=== PATIENT | male | born 1945 | race Caucasian/White ===

== ENCOUNTER 2020-02-26 14:52 | Inpatient (IN) | payer MEDICARE, SELFPAY ==
[~2020-02-26] VITALS: Ht 162.6 cm; Wt 77.1 kg
[2020-02-26 14:54] VITALS: BP 98/78
--- NOTE | 2020-02-26 14:55 | NUR ---
navdeep called to bedside for bradycardia of 24 bpm
--- NOTE | 2020-02-26 15:00 | NUR ---
74 YO M BIBA FROM HOME FOR C/C OF DIZZINESS X 1 DAY. PT PRESENTS BRADYCARDIC IN THE 20'S-30'S HR. CAP REFILL >3. NO EDEMA NOTED. S1S2 HEARD. LUNG SOUNDS CLEAR THROUGHOUT. PT DENIES C/P, STATES HE WAS FEELING NAUSEA WITH NO VOMITING. DENIES CARDIAC PROBLEMS. PT PLACED ON LASER BEAM MACHINE OPERATOR/PULSE OX. BED LOCKED AND IN LOWEST POSITION. SIDE RAILS X2. MED HX: COLON CANCER 3 YEARS AGO, DM2, GERD NKA Addendum: 02/26/20 at 1745 by [email or web address] 74 YO M BIBA FROM HOME FOR C/C OF DIZZINESS X 1 DAY. PT PRESENTS BRADYCARDIC IN THE 20'S-30'S HR, A&O X4. CAP REFILL >3. NO EDEMA NOTED. S1S2 HEARD. LUNG SOUNDS CLEAR THROUGHOUT. PT DENIES C/P, STATES HE WAS FEELING NAUSEA WITH NO VOMITING. DENIES CARDIAC PROBLEMS. PT PLACED ON LASER BEAM MACHINE OPERATOR/PULSE OX. BED LOCKED AND IN LOWEST POSITION. SIDE RAILS X2. MED HX: COLON CANCER 3 YEARS AGO, DM2, GERD NKA
--- NOTE | 2020-02-26 15:10 | NUR ---
ERMD PERFORMING ULTRASOUND GUIDED IV AT BEDSIDE, RAC 20G OBTAINED
--- NOTE | 2020-02-26 15:15 | NUR ---
PT PLACED ON DEFIBRILLATOR OF MONITORING IN EVENT THAT PT NEEDS PACING PER ERMD REQUEST
[2020-02-26] MEDS ORDERED: DOPamine 400 MG/D5W PREMIX 250 ML IV ONE ×2 (15:20→18:05)
[2020-02-26] MEDS ORDERED: NACL 0.9% 1,000 ML IV ONE ×2 (15:20→19:35)
[2020-02-26 15:21] LABS: BASOPHILS # (AUTO) 0.1 K/uL (0.00-0.22); BASOPHILS % (AUTO) 0.6 % (0.0-2.0); EOSINOPHILS # (AUTO) 0.1 K/uL (0-0.4); EOSINOPHILS % (AUTO) 0.6 % (0.0-4.0); HEMATOCRIT 33.1 % (36-52); HEMOGLOBIN 10.1 g/dL (12.0-18.0); LYMPHOCYTES # (AUTO) 2.2 K/uL (2.0-11.5); LYMPHOCYTES % (AUTO) 23.4 % (20.5-51.1); MEAN CORPUSCULAR HEMOGLOBIN 22 pg (27-31); MEAN CORPUSCULAR HGB CONC 30 g/dL (33-37); MEAN CORPUSCULAR VOLUME 72.4 fL (80-94); MONOCYTES # (AUTO) 0.4 K/uL (0.8-1.0); MONOCYTES % (AUTO) 4.5 % (1.7-9.3); NEUTROPHILS # (AUTO) 6.6 K/uL (1.8-7.7); NEUTROPHILS % (AUTO) 70.9 % (42.2-75.2); PLATELET COUNT (AUTO) 186 K/uL (140-450); RED BLOOD CELL COUNT(AUTO) 4.57 MIL/uL (4.20-6.10); RED CELL DISTRIBUTION WIDTH 15.7 % (11.6-13.7); WHITE BLOOD COUNT (AUTO) 9.4 K/uL (4.8-10.8)
--- NOTE | 2020-02-26 15:25 | NUR ---
DOPAMINE TRANSFUSION STARTED, SEE SPREADSHEET
--- NOTE | 2020-02-26 15:38 | NUR ---
UNABLE TO EDIT IV SPREADSHEET, DELETE 1538 COLUMN
[2020-02-26 15:42] LABS: ALBUMIN 3.7 g/dL (3.4-5.0); ASPARTATE AMINOTRANSFERASE 80 U/L (15-37); CARBON DIOXIDE 22.6 mmol/L (21-32); CHLORIDE 99 mmol/L (98-107); CREATININE 2.5 mg/dL (0.6-1.3); SODIUM SERUM 129 mmol/L (136-145); TOTAL BILIRUBIN 0.6 mg/dL (0.0-1.0); UREA NITROGEN, BLOOD 39 mg/dL (7-18)
[2020-02-26 15:47] LABS: MAGNESIUM 2.3 mg/dL (1.8-2.4)
[2020-02-26 15:51] LABS: GLUCOSE 402 mg/dL (74-106); POTASSIUM 7.6 mmol/L (3.5-5.1)
--- NOTE | 2020-02-26 15:58 | NUR ---
RAD AT BEDSIDE
[2020-02-26] MEDS ORDERED: CALCIUM GLUCONATE 10% 1000 MG/10 ML VIAL IVP ONE ×2 (16:00→21:40)
[2020-02-26] MEDS ORDERED: SODIUM BICARBONATE 8.4% PFS 50 MEQ/50 ML SYR IVP ONE ×2 (16:00→21:40)
[2020-02-26] MEDS ORDERED: DEXTROSE 50% 50 ML SYR IVP ONE ×2 (16:00→21:40)
[2020-02-26] MEDS ORDERED: SODIUM ZIRCONIUM CYCLOSILICATE 10 GM POWD.PACK PO ONE ×2 (16:00→19:35)
[2020-02-26] MEDS ORDERED: ALBUTEROL 0.083% 2.5 MG/3 ML NEBU INH ONE ×2 (16:00→21:40)
[2020-02-26] MEDS ORDERED: INSULIN REGULAR, HUMAN 100 UNIT/ML VIAL IVP ONE ×2 (16:00→21:40)
--- NOTE | 2020-02-26 16:00 | NUR ---
RT AT BEDSIDE FOR ALBUTEROL INH
--- NOTE | 2020-02-26 16:35 | NUR ---
PT HAD ONE EPISODE OF VOMITING, ERMD MADE AWARE.
[2020-02-26] MEDS ORDERED: ONDANSETRON 4 MG/2 ML VIAL ONE (16:41)
[2020-02-26] MEDS ORDERED: ONDANSETRON 4 MG/2 ML VIAL IVP ONE (17:10)
--- NOTE | 2020-02-26 17:18 | NUR ---
ATTEMPTED TO CALL TO OBTAIN MED REC, NO ANSWER. LEFT VOICEMAIL.
--- NOTE | 2020-02-26 17:19 | NUR ---
IMMANUEL SWAB COLLECTED, WALKED TO LAB AND LEFT WITH SHANE MCLEAN
[2020-02-26] MEDS ORDERED: GLIP5TER PO (17:27)
[2020-02-26] MEDS ORDERED: LISI2.5T12 PO (17:29)
[2020-02-26] MEDS ORDERED: METF500T PO (17:30)
--- NOTE | 2020-02-26 17:30 | NUR ---
SPOKE WITH PTS , UPDATED ON PLAN OF CARE AND OBTAINED MED REC
[2020-02-26] MEDS ORDERED: MONT10TA35 PO (17:31)
--- NOTE | 2020-02-26 17:57 | NUR ---
CALLED LAB TO CHECK ON STATUS OF IMMANUEL SWAB, STATES THEY WILL MAKE SURE IT IS PROCESSED.
--- NOTE | 2020-02-26 18:14 | NUR ---
PT ASLEEP IN BED. EQUAL CHEST RISE AND FALL, VISCOSITY TESTER/PULSE OX IN PLACE. BED LOCKED AND IN LOWEST POSITION. SIDE RAILS X2.
[2020-02-26] MEDS ORDERED: POTASSIUM CHLORIDE 10 MEQ TABER PO PRN (18:25)
[2020-02-26] MEDS ORDERED: DOCUSATE SODIUM 100 MG GELCAP PO PRN (18:25)
[2020-02-26] MEDS ORDERED: ONDANSETRON 4 MG/2 ML VIAL IM/IVP PRN (18:25)
[2020-02-26] MEDS ORDERED: HYDROcodone/APAP 7.5/325 MG 1 TAB PO PRN (18:25)
[2020-02-26] MEDS ORDERED: DEXTROSE 50% 50 ML SYR IVP PRN (18:30)
[2020-02-26] MEDS: NACL 0.9% 1,000 ML IV SCH (18:36)
[2020-02-26] MEDS: DOPamine 400 MG/D5W PREMIX 250 ML IV PRN ×2 (18:45→23:30)
--- NOTE | 2020-02-26 18:45 | NUR ---
STARTED NEW IV SPREADSHEET FOR NEW ADMIT ORDER OF DOPAMINE, CONTINUED AT 20MCG/KG/MIN.
--- NOTE | 2020-02-26 18:52 | NUR ---
MRSA SWAB COLLECTED AND WALKED TO LAB
[2020-02-26 19:00] LABS: PROTHROMBIN TIME 10.6 secs (10.8-13.4)
--- NOTE | 2020-02-26 19:16 | NUR ---
REPORT GIVEN TO SELAM BROOKS. TRANSFER OF CARE AT THIS TIME.
--- NOTE | 2020-02-26 19:16 | NUR ---
REPORT RECEIVED FROM TEVIN DOSS FOR CONTINUITY OF CARE
[2020-02-26 19:17] LABS: ALBUMIN 3.7 g/dL (3.4-5.0); AMYLASE 139 U/L (25-115); ANION GAP 19.6 (8-16); ASPARTATE AMINOTRANSFERASE 81 U/L (15-37); CHLORIDE 98 mmol/L (98-107); CHOL/HDL RATIO 2.9 (1-4.5); CREATININE 2.6 mg/dL (0.6-1.3); FREE T4 (FREE THYROXINE) 1.41 ng/dL (0.76-1.46); HDL CHOLESTEROL 53 mg/dL (40-60); LDL (CALC) 62 mg/dL (60-100); LIPASE 459 U/L (73-393); PHOSPHORUS 4.5 mg/dL (2.5-4.9); SODIUM SERUM 129 mmol/L (136-145); THYROID STIMULATING HORMONE 2.15 uIU/mL (0.34-3.74); TOTAL BILIRUBIN 0.6 mg/dL (0.0-1.0); TRIGLYCERIDES 195 mg/dL (30-150); UREA NITROGEN, BLOOD 41 mg/dL (7-18)
[2020-02-26 19:23] LABS: POTASSIUM 7.6 mmol/L (3.5-5.1)
[2020-02-26 19:24] LABS: GLUCOSE 405 mg/dL (74-106)
[2020-02-26] MEDS ORDERED: SODIUM ZIRCONIUM CYCLOSILICATE 10 GM POWD.PACK ONE (19:36)
[2020-02-26] MEDS: INSULIN LISPRO SLIDING SCALE 100 UNITS/ML VIAL SUBQ PRN (20:26)
[2020-02-26] MEDS: BLOOD GLUCOSE MONITORING 1 DEV DEV FS SCH (20:27)
--- NOTE | 2020-02-26 21:45 | NUR ---
PT HAD EPISODE OF BRADYCARDIA HR 38. NOTIFIED DR REYNA, ORDERS RECEIVED. NOTIFIED DR ROBERSON.
--- NOTE | 2020-02-26 22:00 | NUR ---
DOPAMINE DRIP INCREASED TO 25 MCG/KG/MIN. HEART RATE NOW 76. WILL CONTINUE TO MONITOR.
--- NOTE | 2020-02-26 22:00 | NUR ---
RT AT BEDSIDE ADM BREATHING TX
--- NOTE | 2020-02-26 23:41 | NUR ---
LAB AT BEDSIDE
[2020-02-26 23:55] LABS: APPEARANCE,URINE CLEAR (CLEAR); BILIRUBIN,URINE NEGATIVE (NEGATIVE); BLOOD, URINE NEGATIVE (NEGATIVE); COLOR,URINE YELLOW (YELLOW); LEUKOCYTE ESTERASE ,URINE NEGATIVE (NEGATIVE); NITRITE, URINE NEGATIVE (NEGATIVE); PH,URINE 5.5 (5.0-9.0); UGLUCOSE 2+ (NEGATIVE)
[2020-02-27] VITALS (8 sets, daily range): BP systolic 123–155; BP diastolic 55–80
[2020-02-27 00:09] LABS: BARBITURATE, URINE NEGATIVE ng/ml (NEG <=200); BENZODIAZEPINE, URINE NEGATIVE ng/mL (NEG <=200); CANNABINOID, URINE NEGATIVE ng/mL (NEG <=50); COCAINE, URINE NEGATIVE ng/mL (NEG <=300); OPIATE, URINE NEGATIVE ng/mL (NEG <=2000); PHENCYCLIDINE SCREEN,URINE NEGATIVE ng/mL (NEG <=25)
--- NOTE | 2020-02-27 01:06 | NUR ---
PT ON DOPAMINE DRIP, HEART 74. NASAL CANNULA 5L O2 SATURATION 92%. WILL CONTINUE TO MONITOR.
--- NOTE | 2020-02-27 02:30 | NUR ---
ON NC 5L, 88% O2 SATURATION. PT PLACED ON NON REBREATHER 15L. O2 SATURATION NOW AT 98%. WILL CONTINUE TO MONITOR.
[2020-02-27] MEDS: DOPamine 400 MG/D5W PREMIX 250 ML IV PRN ×2 (03:01→06:05)
--- NOTE | 2020-02-27 04:24 | NUR ---
PT AWAKE, RESPIRATIONS EVEN AND UNLABORED. CHEST RISE IS SYMMETRICALL. WILL CONTINUE TO MONITOR
--- NOTE | 2020-02-27 06:14 | NUR ---
PT HAS EYES CLOSED, RESTING IN BED RESPIRATIONS EVEN AND UNLABORED. CHEST RISE IS SYMMETRICALL. WILL CONTINUE TO MONITOR
--- NOTE | 2020-02-27 07:15 | NUR ---
REPORT GIVEN TO TEVIN DOSS AND TEX RN FOR CONTINUITY OF CARE
--- NOTE | 2020-02-27 07:16 | NUR ---
REPORT RECEIVED FROM SELAM BROOKS
[2020-02-27] MEDS: BLOOD GLUCOSE MONITORING 1 DEV DEV FS SCH ×4 (07:36→21:05)
[2020-02-27] MEDS: INSULIN LISPRO SLIDING SCALE 100 UNITS/ML VIAL SUBQ PRN ×2 (07:40→11:49)
--- NOTE | 2020-02-27 07:42 | NUR ---
PT CHANGED INTO CLEAN GOWN, NEW LINENS PROVIDED, LEGISLATORS/PULSE OX IN PLACE. BED LOCKED AND IN LOWEST POSITION. SIDE RAILS X1. PT STATES HE HAS A CHO AND WOULD LIKE SOMETHING FOR PAIN. PRN TYLENOL PROVIDED.
--- NOTE | 2020-02-27 08:27 | NUR ---
DR. ROBERSON AT BEDSIDE
[2020-02-27 08:28] LABS: BASOPHILS % (AUTO) 0.2 % (0.0-2.0); HEMATOCRIT 38.2 % (36-52); HEMOGLOBIN 11.8 g/dL (12.0-18.0); LYMPHOCYTES # (AUTO) 1.5 K/uL (2.0-11.5); LYMPHOCYTES % (AUTO) 10.3 % (20.5-51.1); MEAN CORPUSCULAR HEMOGLOBIN 22 pg (27-31); MEAN CORPUSCULAR HGB CONC 31 g/dL (33-37); MEAN CORPUSCULAR VOLUME 71.7 fL (80-94); MONOCYTES # (AUTO) 1.2 K/uL (0.8-1.0); MONOCYTES % (AUTO) 8.1 % (1.7-9.3); NEUTROPHILS # (AUTO) 11.6 K/uL (1.8-7.7); NEUTROPHILS % (AUTO) 81.4 % (42.2-75.2); PLATELET COUNT (AUTO) 257 K/uL (140-450); RED BLOOD CELL COUNT(AUTO) 5.33 MIL/uL (4.20-6.10); RED CELL DISTRIBUTION WIDTH 15.5 % (11.6-13.7); WHITE BLOOD COUNT (AUTO) 14.2 K/uL (4.8-10.8)
--- NOTE | 2020-02-27 08:30 | NUR ---
PT PROVIDED WITH BREAKFAST TRAY
[2020-02-27 08:57] LABS: ANION GAP 16.1 (8-16); CARBON DIOXIDE 22.6 mmol/L (21-32); CHLORIDE 104 mmol/L (98-107); CREATININE 2.2 mg/dL (0.6-1.3); GLUCOSE 277 mg/dL (74-106); SODIUM SERUM 137 mmol/L (136-145); UREA NITROGEN, BLOOD 38 mg/dL (7-18)
[2020-02-27] MEDS ORDERED: metFORMIN 500 MG TAB PO SCH (09:00)
[2020-02-27] MEDS ORDERED: lisinopriL 5 MG TAB PO SCH (09:00)
[2020-02-27 09:24] LABS: POTASSIUM 5.7 mmol/L (3.5-5.1)
[2020-02-27] MEDS: PANTOPRAZOLE 40 MG TABEC PO SCH (09:25)
[2020-02-27] MEDS: glipiZIDE ER 5 MG TABER PO SCH (09:25)
[2020-02-27] MEDS: MONTELUKAST SODIUM 10 MG TAB PO SCH (09:26)
[2020-02-27] MEDS: ACETAMINOPHEN 325 MG TAB PO PRN ×2 (10:08→21:06)
[2020-02-27] MEDS ORDERED: hydrALAZINE 20 MG/ML VIAL IVP PRN (10:30)
--- NOTE | 2020-02-27 10:52 | NUR ---
PT AT BEDSIDE FOR PT EVAL
[2020-02-27] MEDS: NACL 0.9% 1,000 ML IV SCH (11:25)
--- NOTE | 2020-02-27 11:50 | NUR ---
PT EXPERIENCING NAUSEA, PRN ZOFRAN PROVIDED
--- NOTE | 2020-02-27 12:26 | NUR ---
PT PROVIDED WITH LUNCH TRAY
--- NOTE | 2020-02-27 12:33 | NUR ---
SOCIAL WORK NOTE: Patient's Orientation Unable To Assess Information Provided By AMAN MIRANDA - Comments SW WAS UNABLE TO MEET PATIENT AT BEDSIDE TO COMPLETE ASSESSMENT. SW CONTACTED TO COMPLETE ASSESSMENT. Nurse Orthopaedic, Realtionship and Phone Number AMAN ORTEGA [phone] Healthcare Power of Director Software Development No Does Patient Have a POLST No Identifying Problems No Social Work Triggers Is A Social Work Consult Needed No Mandate Report Filed No Explanation Of Identifying Problems PATIENT IS A 74-YEAR OLD MALE ADMITTED FOR BRADYCARDIA AND HYPERKALEMIA. PATIENT HAS PMHX OF DM, HTN, ASTHMA, AND COLON CANCER. Admitted From Home Pre-Admission Level Of Functioning Status Independent/Ambulatory Prior Resources/Services Used In Last 12 Months No Prior Resources Used Prior DME No Prior DME Used Dialysis Comments N/A Living Situation House Lives With Spouse Patient Had Caregiver No Home Support No Caregiver Issues Financial Issues No Known Financial Issue Referral To The Financial Counselor Needed No Factors/Needs No D/C Needs Identified Pt/Rep Participated In Discharge Plan Yes Patient/Family Agress With Discharge Plan Yes Discharge Plan Comments TENTATIVE DISCHARGE PLAN IS FOR PATIENT TO RETURN HOME. DC Plan Status Initiated
--- NOTE | 2020-02-27 14:45 | NUR ---
PT ASLEEP IN BED , EQUAL CHEST RISE AND FALL, BED LOCKED AND IN LOWEST POSITION. SIDE RAILS X1. TERRITORY MANAGER GENERAL SALES/PULSE OX IN PLACE. CALL LIGHT IN REACH.
--- NOTE | 2020-02-27 16:45 | NUR ---
PT ASLEEP IN BED , EQUAL CHEST RISE AND FALL, BED LOCKED AND IN LOWEST POSITION. SIDE RAILS X1. DONATIONS ATTENDANT/PULSE OX IN PLACE. CALL LIGHT IN REACH.
--- NOTE | 2020-02-27 17:55 | NUR ---
Patient will be admitted to care of DR. ROBERSON. Admited to ICU. Will go to room 5. Belongings list completed. Report to SELAM DENIS.
--- NOTE | 2020-02-27 21:33 | NUR ---
[facility]. PATIENT ALERT AND ORIENTED X4, PERSON, PLACE, TIME AND EVENT. PATIENT ON NASAL CANULA AT 3, TOLERATING WELL. PATIENT LYING IN BED AT HOB 30 DEGREES, COMFORTABLY AND CALMLY. IV ACCESS SITES INCLUDE RIGHT EJ SALINE LOCK AND PORTICATH RIGHT CHEST WALL, DAYSHIFT NURSE SAID TO NOT ACCESS PORTICATH AT THIS TIME. MALE URINAL AT BEDSIDE, ABLE TO USE INDEPENDENTLY WITH OCCASIONAL ASSISTANCE. PATIENT ON CARDIAC DIET, SKINS INTACT. PATIENT IN POSITION OF COMFORT, ABLE TO TURN IN BED WITH ASSISTANCE. PATIENT OFFLOADED FROM PRESSURE. CONTINUOUS TELE MONITORING, FREQUENT ROUNDING AND CLOSE MONITORING IN PLACE. Addendum: 02/28/20 at 0631 by Spenser Rapp RN RN @ [phone]
--- NOTE | 2020-02-27 23:00 | NUR ---
FREQUENT ROUNDING AND MONITORING, PATIENT TOLERATING NASAL CANNULA @ 3L WELL, LYING DOWN IN THE BED CALM, CONTENT AND TRYING TO REST. WILL CONTINUE TO MONITOR.
[2020-02-28] VITALS (27 sets, daily range): BP systolic 91–173; BP diastolic 48–95
[2020-02-28] MEDS: DOPamine 400 MG/D5W PREMIX 250 ML IV PRN ×2 (00:58→09:51)
--- NOTE | 2020-02-28 01:00 | NUR ---
PATIENT SLEEPING, NO COMPLAINTS OF PAIN OR DISCOMFORT, RESTING COMFORTABLY. FREQUENT ROUNDING AND MONITORING PROVIDED.
--- NOTE | 2020-02-28 03:00 | NUR ---
HYGIENE, BED BATH, SHAMPOO CAP PROVIDED. LINENS CHANGED, PATIENT ASSISTED, CONTINUE TO MONITOR AND FREQUENTLY ROUND. CONTINUOUS TELE MONITORING, NORMAL SINUS.
[2020-02-28] MEDS: NACL 0.9% 1,000 ML IV SCH (03:37)
--- NOTE | 2020-02-28 05:00 | NUR ---
PATIENT CONTINUING TO REST COMFORTABLY AND CALMLY IN THE BED, CONTINUING TO ROUND AND MONITOR, PATIENT CONTINUING TO TOLERATE NASAL CANULA 3L WELL.
--- NOTE | 2020-02-28 06:56 | NUR ---
PATIENT HAS BEEN SCREENED AND CATEGORIZED HIGH NUTRITION RISK. PATIENT WILL BE SEEN WITHIN 1-2 DAYS OF ADMISSION. 02/28/20-02/29/20 ADAM CHAMPAGNE MS, RDN
[2020-02-28] MEDS ORDERED: NACL 0.9% 1,000 ML IV SCH (07:30)
[2020-02-28] MEDS: BLOOD GLUCOSE MONITORING 1 DEV DEV FS SCH ×4 (07:30→21:00)
[2020-02-28 08:07] LABS: T4 (THYROXINE) 5.3 ug/dL (4.5-12.0)
[2020-02-28] MEDS: INSULIN LISPRO SLIDING SCALE 100 UNITS/ML VIAL SUBQ PRN (08:49)
[2020-02-28] MEDS: PANTOPRAZOLE 40 MG TABEC PO SCH (09:29)
[2020-02-28] MEDS: glipiZIDE ER 5 MG TABER PO SCH (09:29)
[2020-02-28] MEDS: MONTELUKAST SODIUM 10 MG TAB PO SCH (09:30)
[2020-02-28] MEDS: ACETAMINOPHEN 325 MG TAB PO PRN (09:55)
--- NOTE | 2020-02-28 11:54 | NUR ---
(02/28/20) RD INITIAL ASSESSMENT COMPLETED PLEASE REFER TO NUTRITION ASSESSMENT UNDER CARE ACTIVITY FOR ESTIMATED NUTRITIONAL NEEDS. RD RECOMMENDATIONS: 1. CONTINUE CARDIAC DIET TOLERATED. 2. RECOMMEND ADDING CCHO 60 GM DIET RESTRICTION TO CURRENT DIET ORDER. 3. RD WILL F/U 3-5 DAYS; MODERATE RISK. ADAM CHAMPAGNE MS, RDN
--- NOTE | 2020-02-28 18:06 | NUR ---
PT REFUSE TO HAVE CBC DRAW AT THIS TIME.
[2020-02-28 18:22] LABS: CARBON DIOXIDE 19.1 mmol/L (21-32); CHLORIDE 105 mmol/L (98-107); CREATININE 1.2 mg/dL (0.6-1.3); GLUCOSE 236 mg/dL (74-106); POTASSIUM 4.1 mmol/L (3.5-5.1); SODIUM SERUM 138 mmol/L (136-145); UREA NITROGEN, BLOOD 24 mg/dL (7-18)
[2020-02-29] VITALS (12 sets, daily range): BP systolic 89–129; BP diastolic 42–64
--- NOTE | 2020-02-29 07:25 | NUR ---
RECEIVED REPORT FROM PERSONNEL ADVISER. AOX4, ON ROOM AIR. NO C/O PAIN, NO SOB, NO APPARENT DISTRESS. WITH C/O GEN WEAKNESS. REJ 18G INFUSING NS AT 60CC/HR. SKIN WARM AND DRY, INTACT. CONTINENT B/B. CALL LIGHT WITHIN REACH. WILL CONTINUE TO MONITOR.
[2020-02-29] MEDS: BLOOD GLUCOSE MONITORING 1 DEV DEV FS SCH ×4 (07:30→20:38)
[2020-02-29] MEDS: MONTELUKAST SODIUM 10 MG TAB PO SCH (08:25)
[2020-02-29] MEDS: PANTOPRAZOLE 40 MG TABEC PO SCH (08:25)
[2020-02-29] MEDS: glipiZIDE ER 5 MG TABER PO SCH (08:25)
--- NOTE | 2020-02-29 08:50 | NUR ---
DUE MORNING MEDS GIVEN. TOLERATED PO MEDS WELL
--- NOTE | 2020-02-29 12:10 | NUR ---
ORDER TO TRANSFER TO TELE NOTED. ASSISTANT COUNTY ENGINEER NOTIFIED
[2020-02-29 12:47] LABS: BASOPHILS # (AUTO) 0.1 K/uL (0.00-0.22); BASOPHILS % (AUTO) 0.7 % (0.0-2.0); EOSINOPHILS % (AUTO) 0.3 % (0.0-4.0); HEMATOCRIT 28.8 % (36-52); HEMOGLOBIN 9.2 g/dL (12.0-18.0); LYMPHOCYTES # (AUTO) 1.2 K/uL (2.0-11.5); MEAN CORPUSCULAR HEMOGLOBIN 22 pg (27-31); MEAN CORPUSCULAR HGB CONC 32 g/dL (33-37); MEAN CORPUSCULAR VOLUME 70.2 fL (80-94); MONOCYTES # (AUTO) 0.7 K/uL (0.8-1.0); NEUTROPHILS # (AUTO) 6.3 K/uL (1.8-7.7); PLATELET COUNT (AUTO) 160 K/uL (140-450); RED CELL DISTRIBUTION WIDTH 14.9 % (11.6-13.7); WHITE BLOOD COUNT (AUTO) 8.2 K/uL (4.8-10.8)
[2020-02-29 13:05] LABS: ANION GAP 12.8 (8-16); CARBON DIOXIDE 22.8 mmol/L (21-32); CHLORIDE 105 mmol/L (98-107); CREATININE 1.7 mg/dL (0.6-1.3); GLUCOSE 134 mg/dL (74-106); POTASSIUM 3.6 mmol/L (3.5-5.1); SODIUM SERUM 137 mmol/L (136-145); UREA NITROGEN, BLOOD 28 mg/dL (7-18)
--- NOTE | 2020-02-29 16:38 | NUR ---
BLOOD SUGAR 136. NO COVERAGE NEEDED
--- NOTE | 2020-02-29 17:59 | NUR ---
TRANSFERRED PT TO TELE FLOOR ROOM 124A REPORT GIVEN TO JOE DOSS
--- NOTE | 2020-02-29 18:00 | NUR ---
RECEIVED PATIENT FROM ICU FOR CONTINUITY OF CARE. PATIENT ARRIVED IN WHEELCHAIR, AWAKE, ALERT, AND ORIENTED. RESP EVEN AND UNLABORED ON ROOM AIR. DENIED OF PAIN AT THIS TIME. NO NOTED ACUTE S/S DISTRESS. REJ 18G NOTED INTACT AND PATENT, SL. RIGHT UPPER PORTACATH NOTED SUBCUTANEOUS. SKIN WARM TO TOUCH AND INTACT. PATIENT ABLE TO FOLLOW COMMAND AND MAKE NEEDS KNOWN. CALL LIGHT WITHIN REACH. WILL CONTINUE TO MONITOR.
--- NOTE | 2020-02-29 19:45 | NUR ---
ENDORSED PATIENT TO NIGHT NURSE. PATIENT IN STABLE CONDITION.
--- NOTE | 2020-02-29 20:10 | NUR ---
RECEIVED REPORT FROM CHARGE NURSE. PT IN BED RESTING, AAOX4, ABLE TO MAKE NEEDS KNOWN. RESPIRATIONS EVEN AND UNLABORED TO ROOM AIR. ABDOMEN IS SOFT AND NON-TENDER, ACTIVE BOWEL SOUNDS NOTED. SKIN IS WARM, DRY, AND INTACT. PT WITH IV ACCESS ON RIGHT EJ G18 PATENT AND INTACT, SALINE LOCKED. PT ALSO WITH RIGHT UPPER CHEST PORT-A-CATH IN PLACE. PT DENIES ANY PAIN OR DISCOMFORT AT THIS TIME. NO REQUESTS MADE. SAFETY MEASURES IN PLACE. CALL LIGHT WITHIN REACH. WILL CONTINUE TO MONITOR.
--- NOTE | 2020-02-29 20:38 | NUR ---
VS STABLE. BLOOD SUGAR 133, NO INSULIN COVERAGE NEEDED. PT DENIES ANY PAIN OR DISCOMFORT. NO REQUESTS MADE. SAFETY MEASURES IN PLACE. CALL LIGHT WITHIN REACH. WILL CONTINUE TO MONITOR.+
[2020-02-29] MEDS: ZOLPIDEM 5 MG TAB PO PRN (21:19)
--- NOTE | 2020-02-29 21:19 | NUR ---
PT VERBALIZED HAVING DIFFICULTY FALLING ASLEEP. PRN AMBIEN GIVEN. WARM FACE TOWEL PROVIDED REQUESTED. PT KEPT COMFORTABLE. CALL LIGHT WITHIN REACH. WILL CONTINUE TO MONITOR.
--- NOTE | 2020-02-29 23:57 | NUR ---
VS STABLE. PT IN BED RESTING. NO S/SX OF DISTRESS NOTED. PT DENIES ANY PAIN OR DISCOMFORT. NO REQUESTS MADE. WILL CONTINUE TO MONITOR.
[2020-03-01] VITALS: BP 119/63
--- NOTE | 2020-03-01 02:11 | NUR ---
PT ASLEEP. PT NOT IN DISTRESS. VISIBLE CHEST RISE AND FALL NOTED. NO S/SX OF PAIN OR DISCOMFORT. SAFETY MEASURES IN PLACE. CALL LIGHT WITHIN REACH. WILL CONTINUE TO MONITOR.
[2020-03-01 04:00] VITALS: BP 141/57
--- NOTE | 2020-03-01 04:21 | NUR ---
VS STABLE. PT NOT IN DISTRESS. DENIES ANY PAIN OR DISCOMFORT. NO REQUESTS MADE AT THIS TIME. SAFETY MEASURES IN PLACE. CALL LIGHT WITHIN REACH. WILL CONTINUE TO MONITOR.
--- NOTE | 2020-03-01 05:30 | NUR ---
PT OFF TO CT SCAN.
[2020-03-01] MEDS: BLOOD GLUCOSE MONITORING 1 DEV DEV FS SCH ×4 (06:47→21:00)
--- NOTE | 2020-03-01 07:20 | NUR ---
RECEIVED PT FROM WEIGHING STATION OPERATOR NURSE, PT IS RESTING IN BED,ON ROOM AIR, IV NOTED TO LAC 20G SALINE LOCK, OV NOTED TO R. EJ 18G, R. UPPER CHEST PORTACATH NOTED, TELE MONITOR ON, SAFETY AND FALL PRECAUTIONS IN PLACE, WILL CONTINUE TO MONITOR.
--- NOTE | 2020-03-01 07:34 | NUR ---
ENDORSED TO DAY SHIFT NURSE FOR CONTINUITY OF CARE
[2020-03-01 08:00] VITALS: BP 143/59
[2020-03-01] MEDS: glipiZIDE ER 5 MG TABER PO SCH (08:50)
[2020-03-01] MEDS: MONTELUKAST SODIUM 10 MG TAB PO SCH (08:50)
[2020-03-01] MEDS: PANTOPRAZOLE 40 MG TABEC PO SCH (08:51)
[2020-03-01] MEDS ORDERED: lisinopriL 5 MG TAB PO SCH (09:00)
[2020-03-01 12:00] VITALS: BP 121/52
[2020-03-01] MEDS: guaiFENesin DM 200/20 MG-10 ML 10 ML UDC PO PRN (12:55)
--- NOTE | 2020-03-01 12:59 | NUR ---
ROBUTUSSIN GIVEN FOR COUGH, NO INSULIN COVERAGE NEEDED FOR 135 BS
[2020-03-01 16:00] VITALS: BP 138/55
[2020-03-01] MEDS: NACL 0.9% 1,000 ML IV SCH (16:49)
--- NOTE | 2020-03-01 16:59 | NUR ---
NORMAL SALINE RUNNING AT 75 ML/HR, PT STATED HE HAS SORE THROAT, LOW TEMP NOTED, 100.1, MD NOTIFIED, NO INSULIN NEEDED BS 132, WILL CONTINUE TO MONITOR.
[2020-03-01] MEDS: ACETAMINOPHEN 325 MG TAB PO PRN (18:45)
--- NOTE | 2020-03-01 18:47 | NUR ---
TYLENOL ADMINISTERED PER MD ORDER FOR SLIGHTLY ELEVATED TEMP.
--- NOTE | 2020-03-01 19:30 | NUR ---
ENDORSED PT TO PRINT DEVELOPER NURSE FOR CONTINUITY OF CARE.
[2020-03-01 20:00] VITALS: BP 115/55
[2020-03-01] MEDS: ZOLPIDEM 5 MG TAB PO PRN (22:07)
[2020-03-01] MEDS: INSULIN LISPRO SLIDING SCALE 100 UNITS/ML VIAL SUBQ PRN (22:33)
[2020-03-02] VITALS: BP 102/57
[2020-03-02] MEDS: guaiFENesin DM 200/20 MG-10 ML 10 ML UDC PO PRN ×2 (02:30→17:40)
[2020-03-02] MEDS: NACL 0.9% 1,000 ML IV SCH ×2 (02:32→08:28)
[2020-03-02 04:00] VITALS: BP 140/53
[2020-03-02] MEDS: BLOOD GLUCOSE MONITORING 1 DEV DEV FS SCH ×3 (06:35→16:58)
[2020-03-02 06:40] LABS: ANION GAP 15.4 (8-16); CARBON DIOXIDE 21.2 mmol/L (21-32); CHLORIDE 102 mmol/L (98-107); CREATININE 1.6 mg/dL (0.6-1.3); GLUCOSE 135 mg/dL (74-106); POTASSIUM 3.6 mmol/L (3.5-5.1); SODIUM SERUM 135 mmol/L (136-145); UREA NITROGEN, BLOOD 22 mg/dL (7-18)
[2020-03-02 06:41] LABS: BASOPHILS % (AUTO) 0.4 % (0.0-2.0); EOSINOPHILS % (AUTO) 0.9 % (0.0-4.0); HEMATOCRIT 28.3 % (36-52); HEMOGLOBIN 8.9 g/dL (12.0-18.0); LYMPHOCYTES # (AUTO) 0.7 K/uL (2.0-11.5); LYMPHOCYTES % (AUTO) 12.4 % (20.5-51.1); MEAN CORPUSCULAR HEMOGLOBIN 22 pg (27-31); MEAN CORPUSCULAR HGB CONC 31 g/dL (33-37); MEAN CORPUSCULAR VOLUME 70.4 fL (80-94); MONOCYTES # (AUTO) 0.8 K/uL (0.8-1.0); MONOCYTES % (AUTO) 15.2 % (1.7-9.3); NEUTROPHILS # (AUTO) 3.9 K/uL (1.8-7.7); NEUTROPHILS % (AUTO) 71.1 % (42.2-75.2); PLATELET COUNT (AUTO) 169 K/uL (140-450); RED BLOOD CELL COUNT(AUTO) 4.01 MIL/uL (4.20-6.10); WHITE BLOOD COUNT (AUTO) 5.5 K/uL (4.8-10.8)
--- NOTE | 2020-03-02 07:15 | NUR ---
RECEIVED PATIENT FROM NIGHT NURSE. PATIENT IN BED AWAKE AND ALERT. RESP EVEN AND UNLABORED ON ROOM AIR. DENIED OF PAIN AT THIS TIME. PLAN OF CARE DISCUSSED, PATIENT VERBALIZED UNDERSTANDING. RAC 20G INFUSING NS 75 ML/HR, REJ 18G NOTED AND PORTACATH TO RIGHT UPPER CHEST. SAFETY MEASURES IN PLACE. CALL LIGHT WITHIN REACH. WILL CONTINUE TO MONITOR.
[2020-03-02 08:00] VITALS: BP 142/52
[2020-03-02 08:13] LABS: PHOSPHORUS 2.9 mg/dL (2.5-4.9)
[2020-03-02] MEDS: glipiZIDE ER 5 MG TABER PO SCH (08:26)
[2020-03-02] MEDS: MONTELUKAST SODIUM 10 MG TAB PO SCH (08:27)
[2020-03-02] MEDS: PANTOPRAZOLE 40 MG TABEC PO SCH (08:27)
--- NOTE | 2020-03-02 08:35 | NUR ---
PATIENT IN BED AWAKE, ALERT, AND ORIENTED X4. RESP EVEN AND UNLABORED ON ROOM AIR. DENIED OF PAIN AT THIS TIME. MORNING ROUTINE MEDICATIONS GIVEN. PATIENT TOLERATED WELL. LAC 20G INFUSING NS 75ML/HR. REJ 18G INTACT AND PATENT. PORTACATH NOTED TO RIGHT UPPER CHEST. PATIENT ABLE TO MAKE NEEDS KNOWN. SAFETY MEASURES IN PLACE. CALL LIGHT WITHIN REACH. WILL CONTINUE TO MONITOR.
--- NOTE | 2020-03-02 10:39 | NUR ---
TEMP 100F, COOLING MEASURES GIVEN. FLUIDS PROVIDED. DENIED OF ANY PAIN AT THIS TIME. WILL CONTINUE TO MONITOR.
--- NOTE | 2020-03-02 11:09 | NUR ---
CHARLA EDWARDS: FAXED ORDER FOR HOME HEALTH TO [facility]. Addendum: 03/03/20 at 1537 by Melonie Colindres CM CHARLA EDWARDS: SPOKE TO MAICOL AT [facility] THEY RECEIVED ORDER AND ARE WORKING ON IT. THEY WILL CONTACT PATIENT ONCE THEY HAVE AN ACCEPTING HOME HEALTH
[2020-03-02 12:00] VITALS: BP 130/63
[2020-03-02] MEDS: ACETAMINOPHEN 325 MG TAB PO PRN (12:56)
--- NOTE | 2020-03-02 13:26 | NUR ---
TEMP 99. FLUIDS GIVEN. PATIENT IN BED AWAKE AND ALERT. TYLENOL GIVEN D/T C/O HEADACHE. RESP EVEN AND UNLABORED. BLOOD SUGAR 110. NO INSULIN COVERAGE AT THIS TIME. CALL LIGHT WITHIN REACH. WILL CONTINUE TO MONITOR.
[2020-03-02] MEDS ORDERED: AMLO10TA89 PO (13:52)
[2020-03-02 14:12] VITALS: BP 130/63
--- NOTE | 2020-03-02 15:50 | NUR ---
PATIENT IN BED SLEEPING, CHEST NOTED RISING. NO ACUTE S/S DISTRESS. CALL LIGHT WITHIN REACH. WILL CONTINUE TO MONITOR.
[2020-03-02 16:00] VITALS: BP 129/62
--- NOTE | 2020-03-02 19:11 | NUR ---
PATIENT DISCHARGED HOME TO FAMILY. PATIENT LEFT WITH ALL PERSONAL BELONGINGS. DISCHARGE INSTRUCTIONS PROVIDED, VERBALIZED UNDERSTANDING. PATIENT LEFT IN STABLE CONDITION.
== END 2020-03-02 19:09 | disposition home health service (06) | DRG 682 ==
LOC: MED 14:52 → EDBEDREQSVC 17:08 → MTU 17:19 → MLD 02-27 17:18 → MIC 02-27 17:47 → MTU 02-29 18:00
PROVIDERS: ADMIT Family Medicine; ATTEND Family Medicine
DX: N17.0 Acute kidney failure with tubular necrosis (principal); G93.41 Metabolic encephalopathy; E87.5 Hyperkalemia; R00.1 Bradycardia, unspecified; J45.909 Unspecified asthma, uncomplicated; E78.2 Mixed hyperlipidemia; R74.01 Elevation of levels of liver transaminase levels; Z20.822 Contact with and (suspected) exposure to COVID-19; E11.22 Type 2 diabetes mellitus with diabetic chronic kidney disease; N18.31 Chronic kidney disease, stage 3a; I95.9 Hypotension, unspecified; I13.10 Hypertensive heart and chronic kidney disease without heart failure, with stage 1 through stage 4 chronic kidney disease, or unspecified chronic kidney disease; Z79.899 Other long term (current) drug therapy; Z79.84 Long term (current) use of oral hypoglycemic drugs; Z92.21 Personal history of antineoplastic chemotherapy; Z90.49 Acquired absence of other specified parts of digestive tract; Z85.038 Personal history of other malignant neoplasm of large intestine
CPT/HCPCS: 36415; 71045; 80048; 80053; 80162; 80305; 81003; 82150; 82948; 83036; 83690; 83735; 83880; 84100; 84436; 84439; 84443; 84479; 84484; 85025; 85610; 85730; 87081; 93005; 94640; 96361; 96374; 96375; 97112; 97116; 97161-GP; 97530; 99291; J0360; J0610; J1265; J1815; J2405; J7030; J7613; Q9967

== ENCOUNTER 2020-03-10 11:32 | Emergency (ER) | payer MEDICARE, SELFPAY ==
[~2020-03-10] VITALS: Ht 162.6 cm; Wt 76.2 kg
[~2020-03-10 11:32] MED LIST: AMLO10TA89 PO; GLIP5TER PO; METF500T PO; MONT10TA35 PO
[2020-03-10 11:34] VITALS: BP 137/58
[2020-03-10] MEDS ORDERED: cefTRIAXone 1,000 MG VIAL ONE (12:11)
[2020-03-10 12:27] LABS: BASOPHILS % (AUTO) 0.4 % (0.0-2.0); EOSINOPHILS % (AUTO) 0.1 % (0.0-4.0); HEMATOCRIT 34.5 % (36-52); HEMOGLOBIN 10.9 g/dL (12.0-18.0); LYMPHOCYTES # (AUTO) 0.6 K/uL (2.0-11.5); LYMPHOCYTES % (AUTO) 10.9 % (20.5-51.1); MEAN CORPUSCULAR HEMOGLOBIN 22 pg (27-31); MEAN CORPUSCULAR HGB CONC 32 g/dL (33-37); MEAN CORPUSCULAR VOLUME 68.9 fL (80-94); MONOCYTES # (AUTO) 0.4 K/uL (0.8-1.0); MONOCYTES % (AUTO) 7.4 % (1.7-9.3); NEUTROPHILS # (AUTO) 4.5 K/uL (1.8-7.7); NEUTROPHILS % (AUTO) 81.2 % (42.2-75.2); PLATELET COUNT (AUTO) 356 K/uL (140-450); RED BLOOD CELL COUNT(AUTO) 5.01 MIL/uL (4.20-6.10); RED CELL DISTRIBUTION WIDTH 14.6 % (11.6-13.7); WHITE BLOOD COUNT (AUTO) 5.5 K/uL (4.8-10.8)
[2020-03-10] MEDS: KETOROLAC 30 MG/ML VIAL IVP ONE (12:40)
[2020-03-10 12:46] LABS: ALBUMIN 2.4 g/dL (3.4-5.0); ANION GAP 15.1 (8-16); ASPARTATE AMINOTRANSFERASE 87 U/L (15-37); CARBON DIOXIDE 22.4 mmol/L (21-32); CHLORIDE 94 mmol/L (98-107); CREATININE 1.7 mg/dL (0.6-1.3); GLUCOSE 185 mg/dL (74-106); POTASSIUM 3.5 mmol/L (3.5-5.1); SODIUM SERUM 128 mmol/L (136-145); TOTAL BILIRUBIN 0.5 mg/dL (0.0-1.0); UREA NITROGEN, BLOOD 23 mg/dL (7-18)
[2020-03-10] MEDS: NACL 0.9% 1,000 ML IV ONE (13:58)
[2020-03-10 16:51] VITALS: BP 123/56
== END 2020-03-10 16:42 | disposition designated cancer center or children's hospital (05) ==
LOC: MED 11:32
DX: J18.9 Pneumonia, unspecified organism (principal); Z20.828 Contact with and (suspected) exposure to other viral communicable diseases; E87.1 Hypo-osmolality and hyponatremia; J45.909 Unspecified asthma, uncomplicated; E11.9 Type 2 diabetes mellitus without complications; I10 Essential (primary) hypertension; Z85.038 Personal history of other malignant neoplasm of large intestine; Z79.899 Other long term (current) drug therapy; Z79.84 Long term (current) use of oral hypoglycemic drugs
CPT/HCPCS: 36415; 71045; 80053; 83880; 84484; 85025; 87040; 87426; 93005; 96361; 96365; 96375; 99285; J0696; J1885; J7030